=== PATIENT | female | born 1955 | race Hispanic/Latino ===

== ENCOUNTER 2022-01-01 07:45 | Day surgery (SDC) | payer OTHER ==
[2021-12-31 14:00] LABS: BASOPHILS % (AUTO) 0.2 % (0.0-5.0); EOSINOPHILS % (AUTO) 0.8 % (0.0-8.0); HEMATOCRIT 37.7 % (36-48); LYMPHOCYTES % (AUTO) 39.4 % (21.0-51.0); MEAN CORPUSCULAR HEMOGLOBIN 29.9 pg (27.0-33.0); MEAN CORPUSCULAR HGB CONC 33.2 g/dL (32.0-36.0); MEAN CORPUSCULAR VOLUME 90.2 fL (79-99); NEUTROPHILS % (AUTO) 51.2 % (40.0-77.0); PLATELET COUNT (AUTO) 185 K/uL (130-400); RED BLOOD CELL COUNT(AUTO) 4.18 MIL/uL (4.00-5.50); RED CELL DISTRIBUTION WIDTH 12.2 % (11.0-15.5)
[2021-12-31 14:06] LABS: CREATININE 0.8 mg/dL (0.5-1.5)
[2021-12-31 14:19] VITALS: BP 120/73
[~2022-01-01] VITALS: Ht 162.6 cm; Wt 62.6 kg
[2022-01-01] VITALS (17 sets, daily range): BP systolic 115–131; BP diastolic 49–80
[~2022-01-01 07:45] MED LIST: 0.9% NACL 500ML IV.SOLN 500 ML IV SCH; CALCIUM VIT D PO; CETI10TA57 PO; TRAZ-187 PO
[2022-01-01] MEDS ORDERED: LACTATED RINGERS 1000ML 1,000 ML IV ONE (07:57)
[2022-01-01] MEDS: CEFAZOLIN SODIUM 1 GM VIAL IVP SCH ×2 (08:00→10:06)
[2022-01-01] MEDS ORDERED: PARO-37 PO (09:10)
[2022-01-01] MEDS ORDERED: MIDAZOLAM HCL 1 MG/ML 2ML VIAL ONE (09:33)
[2022-01-01] MEDS ORDERED: PROPOFOL 10 MG/ML 20ML VIAL IV ONE (09:33)
[2022-01-01] MEDS ORDERED: ROCURONIUM 10MG/1ML SYR 10 MG/ML ML ONE (09:33)
[2022-01-01] MEDS ORDERED: FENTANYL CITRATE PF 50 MCG/1 ML 2ML VIAL ONE (09:34)
[2022-01-01] MEDS ORDERED: ALEN70TA80 PO (09:57)
[2022-01-01] MEDS ORDERED: CALC-190 PO (09:57)
[2022-01-01] MEDS ORDERED: ATOR10TA69 PO (09:57)
[2022-01-01] MEDS ORDERED: OMEP40CA21 PO (09:57)
[2022-01-01] MEDS ORDERED: FAMO40TA7 PO (09:57)
[2022-01-01] MEDS ORDERED: ONDANSETRON 4MG INJ ONE (10:32)
[2022-01-01] MEDS ORDERED: GLYCOPYRROLATE 1 MG/5 ML SYRINGE ONE (10:43)
[2022-01-01] MEDS ORDERED: NEOSTIGMINE 5MG/5ML SYR IV ONE (10:43)
[2022-01-01] MEDS ORDERED: BUPIVACAINE/PF 0.5% 10ML VIAL ONE (10:44)
[2022-01-01] MEDS ORDERED: MEPERIDINE-PF 25 MG/ML SYG ONE (11:36)
== END 2022-01-01 13:30 | disposition home or self-care (01) ==
LOC: DAH 07:45
PROVIDERS: ATTEND Surgery
DX: L72.3 Sebaceous cyst (principal); K21.9 Gastro-esophageal reflux disease without esophagitis; F41.9 Anxiety disorder, unspecified; Z79.899 Other long term (current) drug therapy; Z79.01 Long term (current) use of anticoagulants; Z98.890 Other specified postprocedural states; Z90.49 Acquired absence of other specified parts of digestive tract; Z97.10 Presence of artificial limb (complete) (partial), unspecified; Z86.19 Personal history of other infectious and parasitic diseases; Z86.010 Personal history of colon polyps
CPT/HCPCS: 80048; 85025; 87426; 36415; 93005; 11406; J7030; A6266; A4452; J7120; J3010; J0690; J3490 ×2; J2710; J2250; J2704; J2405; J2175; A4930; A4215; A4223; A4222; A4221; A4663